=== PATIENT | male | born 1955 | race Caucasian/White ===

== ENCOUNTER → 2024-03-31 06:14 | Day surgery (SDC) | payer OTHER, SELFPAY | LOC: GI 06:14 | PROVIDERS: ATTENDING PHYSICIAN Internal Medicine | DX: Z12.11 Encounter for screening for malignant neoplasm of colon (principal); K57.30 Diverticulosis of large intestine without perforation or abscess without bleeding | CPT/HCPCS: G0121 ==

== ENCOUNTER → 2025-04-07 14:22 | Outpatient (REF) | payer OTHER, SELFPAY | LOC: RAD 14:22 | PROVIDERS: ATTENDING PHYSICIAN Physician Assistant Medical | DX: N50.82 Scrotal pain (principal) | CPT/HCPCS: 76870; 93976 ==

== ENCOUNTER 2025-04-08 06:32 | Day surgery (SDC) | payer OTHER, SELFPAY | END 2025-04-08 11:04 | disposition home or self-care (01) | LOC: GI 06:32 | PROVIDERS: ATTENDING PHYSICIAN Internal Medicine | DX: Z12.11 Encounter for screening for malignant neoplasm of colon (principal); K64.8 Other hemorrhoids; K57.30 Diverticulosis of large intestine without perforation or abscess without bleeding; D12.3 Benign neoplasm of transverse colon; D12.0 Benign neoplasm of cecum | CPT/HCPCS: 45385; 45380; 88305 ==